=== PATIENT | male | born 1945 | race Two or more races ===

== ENCOUNTER 2019-12-04 16:04 | Emergency (ER) | payer BC, MEDICARE, OTHER ==
[~2019-12-04] VITALS: Ht 172.7 cm; Wt 77.1 kg
[~2019-12-04 16:04] MED LIST: ALPR0.5T PO; ZOLP10TA2 PO
[2019-12-04 16:07] VITALS: BP 157/109
--- NOTE | 2019-12-04 16:23 | NUR ---
Patient discharged to home in stable condition. Written and verbal after care instructions given. Patient verbalizes understanding of instruction.
--- NOTE | 2019-12-04 16:24 | NUR ---
Patient discharged to home in stable condition. Written and verbal after care instructions given. Patient verbalizes understanding of instruction.
== END 2019-12-04 16:25 | disposition home or self-care (01) ==
LOC: ER 16:06
DX: G47.00 Insomnia, unspecified (principal); Z76.0 Encounter for issue of repeat prescription; F41.9 Anxiety disorder, unspecified; Z79.899 Other long term (current) drug therapy

== ENCOUNTER 2019-12-21 19:29 | Emergency (ER) | payer BC ==
[~2019-12-21] VITALS: Ht 175.3 cm; Wt 74.8 kg
[2019-12-21 19:29] VITALS: BP 93/52
--- NOTE | 2019-12-21 19:53 | NUR ---
PT NOT IN ROOM FOR MD SEG[facility]. PT ELOPED.
== END 2019-12-21 22:03 | disposition left against medical advice (07) ==
LOC: ER 19:29
DX: Z76.0 Encounter for issue of repeat prescription (principal); Z53.21 Procedure and treatment not carried out due to patient leaving prior to being seen by health care provider

== ENCOUNTER 2019-12-21 23:28 | Emergency (ER) | payer BC ==
[~2019-12-21] VITALS: Ht 175.3 cm; Wt 74.8 kg
[2019-12-21 23:30] VITALS: BP 124/61
--- NOTE | 2019-12-21 23:55 | NUR ---
PT NOT IN ROOM FOR [facility].
== END 2019-12-21 23:56 | disposition home or self-care (01) ==
LOC: ER 23:28
DX: Z76.0 Encounter for issue of repeat prescription (principal); Z87.442 Personal history of urinary calculi; Z79.899 Other long term (current) drug therapy

== ENCOUNTER 2024-06-26 12:54 | Emergency (ER) | payer BC, OTHER ==
[~2024-06-26] VITALS: Ht 170.2 cm; Wt 70.8 kg
[2024-06-26] MEDS: ACETAMINOPHEN ES 500 MG TABLET PO ONE (14:30)
[2024-06-26] MEDS: KETOROLAC TROMETHAMINE 15 MG/ML VIAL IM ONE (15:40)
[2024-06-26] MEDS ORDERED: KETOROLAC TROMETHAMINE 15 MG/ML VIAL ONE (15:42)
[2024-06-26] MEDS ORDERED: ACETAMINOPHEN ES 500 MG TABLET ONE (15:42)
[2024-06-26] MEDS ORDERED: KETO10TA2 PO (17:25)
[2024-06-26] MEDS ORDERED: ACET-2030 PO (17:25)
[2024-06-26] MEDS ORDERED: LIDO30AD10 TP (17:25)
[2024-06-26 18:03] VITALS: BP 135/85; TEMP 98.1; O2SAT 98
== END 2024-06-26 18:03 | disposition home or self-care (01) ==
LOC: ER 12:58
DX: M25.552 Pain in left hip (principal); F41.9 Anxiety disorder, unspecified; N40.0 Benign prostatic hyperplasia without lower urinary tract symptoms; Z87.442 Personal history of urinary calculi
CPT/HCPCS: 99283; 96372; 73503; J1885; 73502